=== PATIENT | male | born 1940 | race Caucasian/White ===

== ENCOUNTER → 2019-06-28 12:20 | Outpatient (CLI) | payer MEDICARE, OTHER, SELFPAY ==
--- NOTE | 2019-06-28 12:23 | DI.US.S_ITS ---
PROCEDURE: US ABDOMEN LIMITED INDICATIONS: RT GROIN PAIN. R/O INGUINAL HERNIA RIGHT TECHNIQUE: Real-time focused scanning was performed of the inguinal region, with image documentation. COMPARISON: None. FINDINGS: Right inguinal hernia is seen, possibly containing bowel loop which could be confirmed with CT. Abdominal wall defect measures 2.0 cm. IMPRESSION: Right inguinal hernia, which may contain a bowel loop. This could be confirmed with CT Dictated by: Doug Gonzalez M.D. on 06/28/2019 at 16:16 Approved by: Doug Gonzalez M.D. on 06/28/2019 at 16:19
== END ==
PROVIDERS: PCP Family Medicine; Referring Provider Nurse Practitioner; Visit Provider Nurse Practitioner
DX: R19.09 Other intra-abdominal and pelvic swelling, mass and lump (principal); K40.90 Unilateral inguinal hernia, without obstruction or gangrene, not specified as recurrent; R10.9 Unspecified abdominal pain
CPT/HCPCS: 76705

== ENCOUNTER → 2019-07-07 10:49 | Outpatient (CLI) | payer MEDICARE, OTHER, SELFPAY ==
--- NOTE | 2019-07-07 11:10 | DI.CT.S_ITS ---
PROCEDURE: CT ABDOMEN PELVIS W CON INDICATIONS: abnormal US possible hernia TECHNIQUE: After the administration of oral and intravenous contrast, 5 mm thick sections acquired from the diaphragms to the symphysis. 5 mm thick coronal and sagittal reformats were performed. For radiation dose reduction, the following was used: automated exposure control, adjustment of mA and/or kV according to patient size. COMPARISON: [facility], US, US ABDOMEN LIMITED, 06/28/2019, 12:31. FINDINGS: Image quality: Excellent. ABDOMEN: Lung bases: Lung bases are clear. Heart size is normal. Solid organs: Liver is normal in size and enhancement. There are scattered simple water density hepatic cysts. No solid mass lesion is found. Gallbladder appears normal anteriorly but more posteriorly a set of several subtle radiodensities are present including one of which contains a small internal calcification consistent with radiolucent gallstones. Biliary system is non-dilated. Pancreas enhances normally. Spleen is normal in size and enhancement. No adrenal nodules. Kidneys are normal in size and enhancement, without hydronephrosis. There is an exophytic water density right lower renal cortical cysts measuring up to 6.0 cm. Peritoneum and bowel: Stomach, small bowel, and colon loops are normal in caliber and wall thickness. No free fluid or air. Nodes and vessels: No retroperitoneal or mesenteric adenopathy. Aorta and inferior vena cava are normal in caliber. Miscellaneous: No ventral hernias. PELVIS: Genitourinary: Bladder wall thickness is normal. Miscellaneous: No inguinal hernias or adenopathy. The internal os of the right inguinal canal appears patulous, and at time of imaging contains inferior extension/herniation of a portion of the right bladder, showing no sign of incarceration or strangulation. Bones: No suspicious bony lesions. No vertebral body compression fractures. IMPRESSION: A patulous internal os of the right inguinal canal is associated with herniation of a portion of the right bladder margin into the inguinal canal, showing no sign of incarceration or strangulation. At time of scanning no bowel loops extend into this area but it is reasonable to assume that intermittent bowel herniation into that area could easily occur. Note is made of scattered hepatic water density cysts and an exophytic right lower kidney 6 cm exophytic cyst. One or more radiolucent gallstones appear present within the gallbladder lumen. One of these calculi contains a small internal calcification. No biliary obstruction or acute cholecystitis is associated. Dictated by: Sumit Lares M.D. on 07/07/2019 at 13:30 Approved by: Sumit Lares M.D. on 07/07/2019 at 13:37
[2019-07-07 12:03] LABS: BUN Creatinine Ratio 17.9 (6-22); Blood Urea Nitrogen 12 mg/dL (9-20); Calcium 9.6 mg/dL (8.4-10.2); Carbon Dioxide 29 mmol/L (22-32); Chloride 99 mmol/L (98-107); Estimated Glomerular Filt Rate > 60.0 mL/min (>60); Glucose 111 mg/dL (80-110); HEMOLYSIS < 15 (0-50); Potassium 4.6 mmol/L (3.4-5.1); Sodium 137 mmol/L (137-145)
== END ==
PROVIDERS: PCP Family Medicine; Referring Provider Family Medicine; Visit Provider Family Medicine
DX: R19.09 Other intra-abdominal and pelvic swelling, mass and lump (principal); R94.4 Abnormal results of kidney function studies; N32.89 Other specified disorders of bladder; N28.1 Cyst of kidney, acquired; K80.20 Calculus of gallbladder without cholecystitis without obstruction
CPT/HCPCS: 36415; 74177; 80048; Q9967

== ENCOUNTER → 2019-08-16 13:48 | Outpatient (CLI) | payer MEDICARE, OTHER, SELFPAY ==
[2019-08-16 14:53] LABS: Add Manual Diff / Slide Review NO; Basophils Absolute Auto 0 /uL (0-100); Basophils Percent Auto 0.5 % (0-2); Eosinophils Absolute Auto 0 /uL (0-450); Eosinophils Percent Auto 0.4 % (2-4); Hematocrit 46.4 % (41-53); Hemoglobin 15.7 g/dL (13.5-17.5); Lymphocytes Absolute Auto 1600 /uL (1100-4500); Lymphocytes Percent Auto 19.2 % (25-40); Mean Corpuscular HGB Conc 33.9 % (30-36); Mean Corpuscular Hemoglobin 31.5 PG (26-34); Mean Corpuscular Volume 92.9 fL (80-100); Monocytes Absolute Auto 600 /uL (0-900); Monocytes Percent Auto 7.9 % (3-14); Neutrophils Absolute Auto 5900 /uL (1500-7000); Platelet Count 226 X10^3/uL (150-400); Red Blood Cell Count 4.99 X10^6/uL (4.5-5.9); Red Cell Distribution Width 13.7 % (11.6-14.8); White Blood Cell Count 8.2 X10^3/uL (4.5-11.0)
[2019-08-16 15:10] LABS: Alanine Aminotransferase 27 IU/L (<50); Albumin 4.6 g/dL (3.5-5.0); Albumin Globulin Ratio 1.8 (1.0-2.8); Alkaline Phosphatase 58 U/L (38-126); Aspartate Aminotransferase 30 IU/L (17-59); BUN Creatinine Ratio 20.6 (6-22); Bilirubin Total 0.9 mg/dL (0.2-1.3); Blood Urea Nitrogen 13 mg/dL (9-20); Calcium 9.4 mg/dL (8.4-10.2); Carbon Dioxide 31 mmol/L (22-32); Chloride 99 mmol/L (98-107); Cholesterol 151 mg/dL (140-199); Estimated Glomerular Filt Rate > 60.0 mL/min (>60); Globulin 2.5 g/dL (1.7-4.1); Glucose 91 mg/dL (80-110); HDL Cholesterol 37 mg/dL (40-60); HEMOLYSIS < 15 (0-50); LDL Cholesterol Calculated 69 mg/dL (<100); Potassium 4.5 mmol/L (3.4-5.1); Sodium 136 mmol/L (137-145); Total Protein 7.1 g/dL (6.3-8.2); Triglycerides 226 mg/dL (35-150)
[2019-08-16 15:35] LABS: Prostate Specific Antigen Scrn 0.809 ng/mL (0.1-4.0)
== END ==
PROVIDERS: PCP Family Medicine; Referring Provider Family Medicine; Visit Provider Family Medicine
DX: E78.5 Hyperlipidemia, unspecified (principal); I10 Essential (primary) hypertension; N40.0 Benign prostatic hyperplasia without lower urinary tract symptoms; Z12.5 Encounter for screening for malignant neoplasm of prostate
CPT/HCPCS: 36415; 80053; 80061; 85025; G0103

== ENCOUNTER 2019-09-06 09:38 | Day surgery (SDC) | payer MEDICARE, OTHER, SELFPAY ==
[2019-08-31 14:44] VITALS: BMI 30.9
[2019-09-06] VITALS (8 sets, daily range): BP systolic 129–183; BP diastolic 74–98; PULSE 60–78; RESP 10–18; TEMP 36.2–36.7; O2SAT 94–99; BMI 30.9
[2019-09-06] MEDS: LACTATED RINGERS 1,000 ML 100 ML IV ×2 (09:49→13:22)
--- NOTE | 2019-09-06 11:23 | PM.PREOP ---
Pre-operative Note COVID-19 COVID-19 status: Negative Result date/Date tested (Pos, Neg/Pending): 09/03/19 Interval Note History & Physical reviewed/Exam performed by Physician: Yes Changes to H&P: No
[2019-09-06] MEDS: CEFAZOLIN 2 GM/100 ML FROZ.PIGGY IV (11:34)
--- NOTE | 2019-09-06 12:04 | SUR.OPER ---
Supine on padded OR bed, head on pillow, arms secured on padded arm boards at <90 degrees abduction, legs uncrossed, safety belt at thigh, tape over blanket over lower legs.
[2019-09-06] MEDS: BUPIVACAINE LIPOSOME 266 MG/20 ML VIAL INJ (12:14)
[2019-09-06] MEDS: BUPIVACAINE 0.25% W/ EPI 30 ML VIAL INJ ×3 (12:14→13:03)
--- NOTE | 2019-09-06 13:38 | P.OP_ITS ---
Operative Date/Time/Diagnoses Date of procedure: 09/06/19 Time of procedure: 13:38 Pre-op diagnosis: umbilical hernia, symptomatic right inguinal hernia Post-op diagnosis: other (2cm umbilical hernia with incarcerated fat; large right inguinal hernia with direct and indirect defects, with blown out inguinal canal floor) Procedure & Clinicians Procedure: Open repair of umbilical hernia with mesh, open repair of right inguinal hernia with mesh Same procedure as scheduled: Yes Indications: Symptomatic umbilical and inguinal hernias Surgeon: Aleisha Ely Click Yes if Unassisted: Yes Anesthesia Type: General Operative Notes Findings: Small umbilical hernia 2cm with incarcerated fat; large inguinal hernia with direct and indirect defects with blown out floor of the canal Specimen(s): none sent Prosthetic devices, grafts, tissues, transplants, or devices: Bard 4.3cm Ventralex mesh; Bard polypropelene macroporous flat mesh 6in x 8in Estimated Blood Loss (mL): 1 Blood products transfused: none Procedure in detail: The patient was brought into the OR, placed supine on the OR table, and appropriate preoperative antibiotics were given. Sequential compression devices were placed on both legs and turned on. General anesthesia was induced and the patient was intubated with an LMA by the anesthesiologist. The abdomen and groin were prepped and draped in sterile fashion for inguinal incision. A surgical time out was conducted. Local anesthetic was infiltrated into the skin and a 15 blade was used to make a 4cm curvilinear incision superior to the umbilicus. The umbilical hernia sac was dissected free from the umbilical skin. The hernia sac was opened. There was fat incarcerated in the hernia defect, which was freed from the hernia sac and reduced. I placed a 4.3cm Ventralex mesh within the defect and secured it in four corners with 3-0 PDS. The fascia was then closed with 3-0 PDS over the mesh. Local anesthetic was infiltrated into the fascia using 0.25% Marcaine with epi, as well as Exparel. The umbilical skin was secured to the fascia with 3-0 Vicryl. The subcutaneous fat and dermis was approximated with 3-0 Vicryl. The skin was closed with 4-0 Monocryl and sealed with Dermabond. Once dry, cotton balls were placed in the umbilicus and secured with Tegaderm for a compression dressing. Attention was then turned to the right groin. An oblique 10cm incision was made two finger breadths superior to the inguinal ligament. Dissection was carried down to through the subcutaneous fat and cathy's fascia down to the aponeurosis of the external oblique fascia. Local anesthetic was infiltrated beneath the aponeurosis. I used the 15 blade to incise the aponeurosis in the direction of the fibers. The aponeurosis was then opened with Metzenbaum scissors to the external ring. The spermatic cord was encircled with a [place] drain. Cremasteric fibers were dissected free from the spermatic cord and hernia sac. Once the hernia sac was freed from the spermatic cord, the inguinal canal floor was evaluated. There was a large direct and moderate indirect inguinal hernia with attenuated canal floor. I gave local anesthetic in the inguinal canal floor, pubic tubercle, and conjoint tendon. I then plicated the transversalis fascia with 2-0 PDS, including bites of inguinal ligament inferiorly and conjoint tendon superiorly. A BARD macroporous inguinal hernia mesh was then brought into the field and shaped to fit the groin. I secured it to the ligaments overlying the pubic tubercle with 2cm overlap, and then secured it to the inguinal ligament inferiorly and the conjoint tendon superiorly with 2-0 PDS suture. I made an opening in the mesh to accommodate the spermatic cord. Once the mesh was secure, I closed the external oblique aponeurosis with 3-0 Vicryl. I the cathy's fascia was closed with 3-0 Vicryl. The skin was closed with running 4-0 Monocryl subcuticular stitch. A total of 80mL of 0.25% Marcaine with epi and 20mL of Exparel were used for the entire case. The skin edges were sealed with Dermabond. The patient was awakened from anesthesia and extubated. He tolerated the procedure well. Needle, sponge and instrument counts were correct x 2. The patient was transferred to PACU in stable condition. Complications: none Post-operative Condition: stable Disposition: PACU
--- NOTE | 2019-09-06 15:29 | SUR.PHASEII ---
1505-Pt stable up and walking gait steady, drinking fluids without problems, daughter assisted pt to get dressed and now ready to go home. Iv dcd and site clear. Surgical sites clear. Pt dcd via [place] to private car at [facility], [place].
== END 2019-09-06 15:05 | disposition home or self-care (01) ==
PROVIDERS: PCP Family Medicine; Referring Provider Surgery; Visit Provider Surgery
PROC: (CPT 49505; principal; 2019-09-06 11:15)
DX: K40.90 Unilateral inguinal hernia, without obstruction or gangrene, not specified as recurrent (principal); K42.0 Umbilical hernia with obstruction, without gangrene; I10 Essential (primary) hypertension; E78.5 Hyperlipidemia, unspecified; N40.0 Benign prostatic hyperplasia without lower urinary tract symptoms
CPT/HCPCS: 49505; 49585; C1781; C9290; J0690; J1100; J1885; J2405; J2704; J3010

== ENCOUNTER → 2020-11-05 14:27 | Outpatient (CLI) | payer MEDICARE, OTHER, SELFPAY ==
[2020-11-05 15:42] LABS: Alanine Aminotransferase 24 IU/L (<50); Albumin 4.4 g/dL (3.5-5.0); Albumin Globulin Ratio 1.8 (1.0-2.8); Alkaline Phosphatase 59 U/L (38-126); Aspartate Aminotransferase 27 IU/L (17-59); BUN Creatinine Ratio 22.6 (6-22); Blood Urea Nitrogen 14 mg/dL (9-20); Calcium 9.2 mg/dL (8.4-10.2); Carbon Dioxide 24 mmol/L (22-32); Chloride 104 mmol/L (98-107); Cholesterol 139 mg/dL (140-199); Estimated Glomerular Filt Rate > 60.0 mL/min (>60); Globulin 2.5 g/dL (1.7-4.1); Glucose 92 mg/dL (80-110); HDL Cholesterol 42 mg/dL (40-60); HEMOLYSIS < 15 (0-50); LDL Cholesterol Calculated 68 mg/dL (<100); Sodium 137 mmol/L (137-145); Total Protein 6.9 g/dL (6.3-8.2); Triglycerides 145 mg/dL (35-150)
[2020-11-05 15:43] LABS: Hematocrit 45.6 % (41-53); Hemoglobin 15.3 g/dL (13.5-17.5); Mean Corpuscular HGB Conc 33.5 % (30-36); Mean Corpuscular Hemoglobin 30.7 PG (26-34); Mean Corpuscular Volume 91.8 fL (80-100); Platelet Count 204 X10^3/uL (150-400); Red Blood Cell Count 4.97 X10^6/uL (4.5-5.9); Red Cell Distribution Width 13.7 % (11.6-14.8); White Blood Cell Count 6.5 X10^3/uL (4.5-11.0)
[2020-11-05 15:57] LABS: Free T3, Triiodothyronine Free 4.22 pg/mL (2.77-5.27); Free T4, Direct Thyroxine 1.05 ng/dL (0.78-2.19)
[2020-11-05 16:04] LABS: Creatinine Urine Random 118.8 mg/dL
[2020-11-05 16:09] LABS: Microalbumi Creatinin Ratio Ur 6.7 ug/mg CR (<30); Microalbumin Urine Random 0.8 mg/dL (0-1.6)
[2020-11-05 16:11] LABS: Thyroid Stimulating Hormone 2.75 uIU/mL (0.47-4.68)
[2020-11-05 16:12] LABS: Prostate Specific Antigen 0.459 ng/mL (0.10-4.00)
[2020-11-05 16:20] LABS: Neutrophils Absolute Manual 3965 /uL (3000-5900); RBC Morphology Normal Morphology; Total Cells Counted 100
== END ==
PROVIDERS: PCP Nurse Practitioner; Referring Provider Nurse Practitioner; Visit Provider Nurse Practitioner
DX: E78.5 Hyperlipidemia, unspecified (principal); I10 Essential (primary) hypertension; N40.0 Benign prostatic hyperplasia without lower urinary tract symptoms; Z79.899 Other long term (current) drug therapy; Z87.440 Personal history of urinary (tract) infections; Z12.5 Encounter for screening for malignant neoplasm of prostate
CPT/HCPCS: 36415; 80053; 80061; 82043; 82570; 84153; 84439; 84443; 84481; 85025

== ENCOUNTER → 2021-10-06 12:45 | Outpatient (CLI) | payer MEDICARE, OTHER, SELFPAY ==
[2021-10-06 14:53] LABS: Free T3, Triiodothyronine Free 3.75 pg/mL (2.77-5.27); Free T4, Direct Thyroxine 1.24 ng/dL (0.78-2.19)
[2021-10-06 16:00] LABS: Alanine Aminotransferase 21 IU/L (<50); Albumin 4.3 g/dL (3.5-5.0); Albumin Globulin Ratio 1.7 (1.0-2.8); Alkaline Phosphatase 63 U/L (38-126); Aspartate Aminotransferase 35 IU/L (17-59); BUN Creatinine Ratio 21.8 (6-22); Bilirubin Total 2.1 mg/dL (0.2-1.3); Blood Urea Nitrogen 12 mg/dL (9-20); Carbon Dioxide 27 mmol/L (22-32); Chloride 98 mmol/L (98-107); Cholesterol 118 mg/dL (140-199); Estimated Glomerular Filt Rate > 60 mL/min (>60); Globulin 2.5 g/dL (1.7-4.1); Glucose 83 mg/dL (80-110); HDL Cholesterol 47 mg/dL (40-60); HEMOLYSIS 36 (0-50); LDL Cholesterol Calculated 61 mg/dL (<100); Potassium 4.5 mmol/L (3.4-5.1); Sodium 133 mmol/L (137-145); Total Protein 6.8 g/dL (6.3-8.2); Triglycerides 48 mg/dL (35-150)
[2021-10-06 17:22] LABS: Creatinine Urine Random 94.1 mg/dL
[2021-10-06 17:26] LABS: Microalbumi Creatinin Ratio Ur 6.3 ug/mg CR (<30); Microalbumin Urine Random 0.6 mg/dL (0-1.6)
== END ==
PROVIDERS: PCP Family Medicine; Referring Provider Nurse Practitioner; Visit Provider Nurse Practitioner
DX: I10 Essential (primary) hypertension (principal); E78.2 Mixed hyperlipidemia; Z79.899 Other long term (current) drug therapy
CPT/HCPCS: 36415; 80053; 80061; 82043; 82570; 84439; 84443; 84481; 93005; 93010

== ENCOUNTER → 2021-10-28 14:58 | Outpatient (CLI) | payer MEDICARE, OTHER, SELFPAY ==
--- NOTE | 2021-10-28 15:02 | DI.ECHO.S_ITS ---
[facility]---------+ [facility] +---------+ : : [address] : : : : [id number] : : : : Phone: [phone]+ Echocardiogram Report + + :Name: SKIP MARSH Study Date: 10/28/2021 Height: 69 in : :[facility] ReadingLocation: Weight: 170 lb : : Gender: Male BSA: 1.9 m2 : :: 1940 Age: 81 yrs BP: 130/82 mmHg: :Reason For Study: HYPERTENSION : :Ordering Physician: TIEN, : :CHACORTA Performed By: Ally Mast : :Referring: CHACORTA CHAUHAN : + + Interpretation Summary The left ventricle is normal in size and wall thickness. The ejection fraction is estimated to be 60-65%. The right ventricle is normal in size and function. No significant valvular pathology seen. The ascending aorta is moderately enlarged. 4.5 cm in diameter. Procedure: A two-dimensional transthoracic echocardiogram with color flow and Doppler was performed. The study quality was technically adequate. There is no prior echocardiogram noted for this patient. The patient was in sinus rhythm with heart rates between 73-80 bpm during the exam. Left Ventricle: The left ventricle is normal in size and wall thickness. There is no thrombus. The ejection fraction is estimated to be 60-65%. There are no focal wall motion abnormalities. Diastolic parameters suggest a relaxation abnormality of the left ventricle, consistent with probable normal filling pressures. Right Ventricle: The right ventricle is normal in size and function. Atria: The left atrial size is normal. Right atrial size is normal. There is no Doppler evidence for an interatrial shunt. Mitral Valve: The mitral valve leaflets appear borderline thickened, but open well. There is mild mitral annular calcification. There is mild mitral regurgitation. Aortic Valve: The aortic valve is trileaflet. The aortic valve opens well. There is no aortic valve stenosis. There is trace aortic regurgitation. Tricuspid Valve: The tricuspid valve is normal in structure and function. There is mild tricuspid regurgitation. The right ventricular systolic pressure is estimated to be at least 30 mmHg based on an estimated right atrial pressure of 3 mm Hg. Pulmonic Valve: The pulmonic valve is not well visualized. There is mild pulmonic regurgitation. Great Vessels: The aortic root is normal size. The ascending aorta is moderately enlarged. The IVC is of normal diameter and collapses greater than 50% with a sniff. This suggests a low right atrial pressure of 3 mm Hg. Pericardium/ Pleura There is no pericardial effusion. There is no pleural effusion. MMode/2D Measurements & Calculations LVIDd: 4.8 cm LVOT diam: 2.3 cm LVIDs: 3.2 cm Ao root diam: 3.6 cm FS: 33.0 % asc Aorta Diam: 4.5 cm IVSd: 1.00 cm LVPWd: 0.99 cm LV auguste. diameter/BSA (cm/m^2): 2.5 LV sys. diameter/BSA (cm/m^2): 1.7 LA A2 area: 19.7 cm2 RA long axis: 5.4 cm LA A4 area: 15.9 cm2 RA area: 15.1 cm2 LA length (vol): 5.0 cm RA vol: 36.2 ml LA vol: 53.5 ml RA : 18.8 ml/m2 LA vol index: 27.8 ml/m2 IVC diam: 1.4 cm RVD1 (basal): 3.4 cm TAPSE: 1.8 cm Doppler Measurements & Calculations Ao V2 max: 128.0 cm/sec LVOT Max Shawn: 108.5 cm/sec Ao V2 mean: 88.0 cm/sec LV V1 max P.7 mmHg Ao max P.6 mmHg LV V1 VTI: 23.2 cm Ao mean P.4 mmHg LUDIN(I,D): 4.2 cm2 Ao V2 VTI: 23.1 cm LUDIN(V,D): 3.6 cm2 sev ratio: 1.0 LUDIN indexed to BSA (cm^2/m^2): 2.2 MV E max shawn: 68.0 cm/sec TR max shawn: 258.9 cm/sec MV A max shawn: 101.2 cm/sec TR max P.8 mmHg MV E/A: 0.67 PA V2 max: 115.1 cm/sec Med Peak E' Shawn: 5.1 cm/sec PA V2 mean: 74.0 cm/sec E/E' med: 13.3 PA mean P.6 mmHg Lat Peak E' Shawn: 7.3 cm/sec PA pr(Accel): 20.8 mmHg E/E' lat: 9.3 E/e' average: 11.3 MV dec time: 0.24 sec SV(LVOT): 98.1 ml Reading Physician:05:42 PM
== END ==
PROVIDERS: PCP Family Medicine; Referring Provider Nurse Practitioner; Visit Provider Nurse Practitioner
DX: I10 Essential (primary) hypertension (principal)
CPT/HCPCS: 93306

== ENCOUNTER → 2021-11-05 11:42 | Outpatient (CLI) | payer MEDICARE, OTHER, SELFPAY ==
[2021-11-05 13:20] LABS: COVID19 -Nasal RAPID Negative (Negative)
== END ==
PROVIDERS: PCP Family Medicine; Visit Provider Surgery
DX: Z01.812 Encounter for preprocedural laboratory examination (principal); Z20.822 Contact with and (suspected) exposure to COVID-19
CPT/HCPCS: 87635; C9803

== ENCOUNTER 2021-11-06 10:08 | Day surgery (SDC) | payer MEDICARE, OTHER, SELFPAY ==
--- NOTE | 2021-11-06 | PATH_ITS ---
[facility] Accession Number: [id number] . 01 Material submitted: . PART A: colon - ASCENDING COLON POLYP PART B: colon - HEPATIC FLEXURE POLYP . 01 Diagnosis: A. Ascending Colon, Polyp, Biopsy: Tubular adenoma. . B. Hepatic Flexure, Polyp, Biopsy: Tubular adenoma. . [facility] 11/11/2021 1819 Local . 01 Electronically signed: . Rosamaria Andres MD, Pathologist NPI- [id number] . 01 Gross description: . A. The specimen is received in formalin, labeled with the patient's name and ascending colon polyp, and consists of a single irregular naranjo, soft tissue fragment measuring 0.4 cm in greatest dimension. Submitted entirely in cassette A1. B. The specimen is received in formalin, labeled with the patient's name and hepatic flexure polyp, and consists of a single irregular naranjo, soft tissue fragment measuring 0.5 cm in greatest dimension. Submitted entirely in cassette B1. ([id number]) /[facility] 11/08/2021 1415 Local . 01 Pathologist provided ICD-10: D12.2, D12.3 . 01 CPT . 308682, [id number] Specimen Comment: A courtesy copy of this report has been sent to [phone] Performed at: 01 [facility] [address] [place] [address], [place], [place] [id number] MD Shine Hunt MD Phone: [phone]
[2021-11-06 10:36] VITALS: BP 143/80; PULSE 86; RESP 20; TEMP 36.7; O2SAT 98; BMI 25.4
[2021-11-06] MEDS: LACTATED RINGERS 1,000 ML 200 ML IV (10:36)
--- NOTE | 2021-11-06 12:37 | PM.PREOP ---
Pre-operative Note COVID-19 COVID-19 status: Negative Result date/Date tested (Pos, Neg/Pending): 11/05/21 Interval Note History & Physical reviewed/Exam performed by Physician: Yes Changes to H&P: No ASA Class (for procedural sedation): II
[2021-11-06] MEDS: MIDAZOLAM 5 MG/5 ML VIAL IV (12:48)
[2021-11-06] MEDS: fentaNYL 100 MCG/2 ML INJ 125 MCG IV (12:48)
--- NOTE | 2021-11-06 13:17 | PM.OP.COLON ---
Operative Date/Time/Diagnoses Date of procedure: 11/06/21 Time of procedure: 13:17 Pre-op diagnosis: History of polyps Post-op diagnosis: same Procedure & Clinicians Study performed: Colonoscopy Same procedure as scheduled: Yes Surgeon: Wolf Lorenzo Procedure Notes Procedure in detail: Surgeon: Wolf Lorenzo MD Procedure: The patient was brought to the endoscopy suite, placed in left lateral decubitus position. The patient was connected to monitoring devices. A time-out was performed. Sedation was administered. Once the patient was adequately sedated, a digital rectal exam was performed and was normal. The scope was then inserted and advanced to the cecum where the appendiceal orifice was identified and photographed. The scope was then slowly withdrawn over greater than 6 minutes. The mucosa was thoroughly inspected. There was a 5 mm polyp in the ascending colon removed with a cold snare. There was a 5 mm polyp near the hepatic flexure removed with a cold snare. The scope was retroflexed in the rectum. There were some internal hemorrhoids but no other abnormalities were seen. The scope was straightened and removed. The patient was awakened and brought to recovery. Versed: 5 mg Fentanyl: 125 mcg EBL: 4 mL Findings: Ascending colon polyp and hepatic flexure polyp Scope withdrawal time: 12 Sedation minutes: 26 Post-procedure Disposition: PACU
[2021-11-06 13:21] VITALS: BP 108/71; PULSE 62; RESP 16; TEMP 36.2; O2SAT 95
[2021-11-06 13:26] VITALS: BP 117/71; PULSE 64; RESP 16; TEMP 36.9; O2SAT 95
[2021-11-06 13:36] VITALS: BP 107/71; PULSE 64; RESP 16; TEMP 36.2; O2SAT 98
[2021-11-06 13:44] VITALS: BP 124/81; PULSE 64; RESP 14; TEMP 36; O2SAT 94
--- NOTE | 2021-11-06 14:46 | SUR.PHASEII ---
Patient ambulated to wheelchair with steady gait. tolerated Fluids. Provided written and verbal discharge instructions Patient and daughter Ana stated understanding. Discharged by wheelchair to private vehicle in stable condition.
== END 2021-11-06 14:09 | disposition home or self-care (01) ==
PROVIDERS: PCP Family Medicine; Referring Provider Surgery; Visit Provider Surgery
PROC: 0DJD8ZZ Inspection of Lower Intestinal Tract, Via Natural or Artificial Opening Endoscopic (ICD-10-PCS; CPT 45378; principal; 2021-11-06 14:00)
DX: Z12.11 Encounter for screening for malignant neoplasm of colon (principal); Z86.010 Personal history of colon polyps; K64.8 Other hemorrhoids; D12.2 Benign neoplasm of ascending colon; D12.3 Benign neoplasm of transverse colon
CPT/HCPCS: 45385; 99152; 99153; J2250; J3010

== ENCOUNTER → 2021-12-09 14:46 | Outpatient (CLI) | payer MEDICARE, OTHER, SELFPAY ==
[2021-12-09 16:51] LABS: Alanine Aminotransferase 20 IU/L (<50); Albumin 4.4 g/dL (3.5-5.0); Albumin Globulin Ratio 1.6 (1.0-2.8); Alkaline Phosphatase 61 U/L (38-126); Aspartate Aminotransferase 29 IU/L (17-59); BUN Creatinine Ratio 23.3 (6-22); Bilirubin Total 1.4 mg/dL (0.2-1.3); Blood Urea Nitrogen 14 mg/dL (9-20); Calcium 9.1 mg/dL (8.4-10.2); Carbon Dioxide 27 mmol/L (22-32); Chloride 101 mmol/L (98-107); Cholesterol 133 mg/dL (140-199); Estimated Glomerular Filt Rate > 60 mL/min (>60); Globulin 2.7 g/dL (1.7-4.1); Glucose 84 mg/dL (80-110); HDL Cholesterol 46 mg/dL (40-60); HEMOLYSIS < 15 (0-50); LDL Cholesterol Calculated 68 mg/dL (<100); Potassium 3.9 mmol/L (3.4-5.1); Sodium 137 mmol/L (137-145); Total Protein 7.1 g/dL (6.3-8.2); Triglycerides 93 mg/dL (35-150)
[2021-12-09 17:03] LABS: LDL Cholesterol Direct 65 mg/dL (<100)
== END ==
PROVIDERS: PCP Family Medicine; Referring Provider Nurse Practitioner; Visit Provider Nurse Practitioner
DX: E78.2 Mixed hyperlipidemia (principal); E87.1 Hypo-osmolality and hyponatremia; R17 Unspecified jaundice
CPT/HCPCS: 36415; 80053; 80061; 83721

== ENCOUNTER → 2022-05-26 08:01 | Outpatient (CLI) | payer MEDICARE, OTHER, SELFPAY ==
[2022-05-26 09:46] LABS: Alanine Aminotransferase 21 IU/L (<50); Albumin 4.2 g/dL (3.5-5.0); Albumin Globulin Ratio 1.4 (1.0-2.8); Alkaline Phosphatase 60 U/L (38-126); Aspartate Aminotransferase 25 IU/L (17-59); BUN Creatinine Ratio 28.8 (6-22); Bilirubin Total 1.4 mg/dL (0.2-1.3); Blood Urea Nitrogen 19 mg/dL (9-20); Calcium 9.2 mg/dL (8.4-10.2); Carbon Dioxide 27 mmol/L (22-32); Chloride 103 mmol/L (98-107); Estimated Glomerular Filt Rate > 60 mL/min (>60); Globulin 2.9 g/dL (1.7-4.1); Glucose 99 mg/dL (80-110); HEMOLYSIS < 15 (0-50); Potassium 4.1 mmol/L (3.4-5.1); Sodium 138 mmol/L (137-145); Total Protein 7.1 g/dL (6.3-8.2)
[2022-05-26 10:31] LABS: Hep C Virus Ab w/Reflex Quant NEGATIVE s/c (NEGATIVE)
== END ==
PROVIDERS: PCP Nurse Practitioner; Referring Provider Nurse Practitioner; Visit Provider Nurse Practitioner
DX: I10 Essential (primary) hypertension (principal); E87.1 Hypo-osmolality and hyponatremia; R17 Unspecified jaundice; Z11.59 Encounter for screening for other viral diseases
CPT/HCPCS: 36415; 80053; 86803; 93005

== ENCOUNTER 2023-05-05 13:45 | Outpatient (RCR) | payer MEDICARE, OTHER, SELFPAY ==
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
--- NOTE | 2023-03-15 14:37 | PT.OPPOC ---
Physical, Occupational & Speech Therapy At [facility] Current Diagnoses Displaced bimalleolar fracture of right lower leg, initial encounter for closed fracture (03/15/23) Encounter for other orthopedic aftercare (03/15/23) Visit Care Team Role Provider Type TAHIRA Malone Family Provider Advanced Artificial Pearl Maker Primary Care Provider Specialty: Family Practice Address: [address] [place] [address], [id number] Email: [email or web address] Leonel Aponte DO Attending Provider Non-Staff Referring Provider Specialty: Orthopedics Address: [address] [place] [address], [id number] Email: Plan Of Care PT-OP-T Assessment and Plan Start: 03/08/23 13:22 Freq: Status: Active Protocol: Document 03/15/23 10:31 MB (Rec: 03/15/23 10:54 MB [id number]) Physical Therapy Assessment Rehab Potential Rehabilitation Potential Good Evaluation Complexity Number of Personal Factors/Comorbidities 1-2 Number of Body Systems Impaired 1-2 Clinical Presentation at Evaluation Evolving Impairments Impairments Balance,Functional Activities, Functional Mobility,Gait, Integument,Pain,Posture,ROM, Soft Tissue Mobility,Strength Goals 5 Impairment Lack of HEP Social Studies Teacher Goal (LTG) Pt will perform progressive HEP with I including posture, alignment, balance, flexibility and strengthening exercises to improve function and gait. LTG Duration 8 weeks 4 Impairment LEF score 43/80 Social Studies Teacher Goal (LTG) Pt will present with LEF score to at least 60/80 to reflect improved LE function and to decrease fall risk. LTG Duration 8 weeks 3 Impairment Evidence for imbalance Chcf Goal (LTG) Pt will perform WNLs on a standardized balance test to decrease fall risk. LTG Duration 8 weeks 2 Impairment 14 reps STS in 30 sec Social Studies Teacher Goal (LTG) Pt will perform at least 17 reps STS in 30 sec to improve functional strength and transfers. LTG Duration 8 weeks 1 Impairment 915 feet gait in 6 minutes Chcf Goal (LTG) Pt will gait train at least 1150 feet in 6 minutes to improve community ambulation and I. LTG Duration 8 weeks Assessment Summary Assessment Pt is hyperverbal but does not answer direct questions well. PT con't to try to keep pt on task which is challenging during history taking. Pt presents with antalgic gait, postural changes, decreased right ankle and foot range and strength and decreased balance after B malleolar fracture [place]. He will benefit from PT to improve gait, posture, balance and functional strength. Pt reports he is very active at baseline and would like to return to being normal. Physical Therapy Plan Frequency and Duration Frequency of Treatment 1-2x/wk Duration of treatment (weeks) 8 Plan of Care Start Date 03/15/23 Plan of Care End Date 05/17/23 Therapeutic Interventions Therapeutic Interventions Balance Training,Canalithic Repositioning,Coordination Training,Gait Training,Home Exercise Program,Joint Mobilizations,Manual Therapy, Neuromuscular Re-education, Patient/Caregiver Education, Self-Care/Home Management,Soft Tissue Mobilization,Taping, Therapeutic Activities, Therapeutic Exercises Modalities Cold Pack/Ice Massage,Electric Stimulation,Hot Packs, Ultrasound Next Visit Focus/Plan Next Note Type Treatment Note Next Visit Plan Functional Gait Assessment Initiate exercises: consider Biodex for exercise that includes gentle foot movement on movable foot plates Consider flexibility exercises with martial art band in supine: hamstring stretch with AP, add and abd positions added, bridging, other ankle exercises with theraband Balance exercises on floor and blue foam Plan of Care Dates Plan of Care Start Date 03/15/23 Plan of Care End Date 05/17/23 Electronically Signed by: Jenise Mcmahan PT 03/15/23 6129 If you are in agreement with this Plan of Care, please return a signed and dated copy. I have reviewed this Plan of Care and certify that the skilled therapy services above are required to meet the patient?s needs. Physician Signature Date Printed Name and Credentials Clinical Instructor Signature Printed Name and Credentials
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
== END 2023-05-17 10:43 | disposition home or self-care (01) ==
LOC: PHYS 13:45
PROVIDERS: Family Provider Nurse Practitioner; PCP Nurse Practitioner; Referring Provider Orthopaedic Surgery; Visit Provider Orthopaedic Surgery
DX: Z47.89 Encounter for other orthopedic aftercare (principal); S82.841A Displaced bimalleolar fracture of right lower leg, initial encounter for closed fracture
CPT/HCPCS: 97110; 97112; 97116; 97161; 97535

== ENCOUNTER → 2023-06-14 13:38 | Outpatient (CLI) | payer MEDICARE, OTHER, SELFPAY ==
[2023-06-14 14:28] LABS: Alanine Aminotransferase 31 IU/L (<50); Albumin 4.7 g/dL (3.5-5.0); Albumin Globulin Ratio 1.7 (1.0-2.8); Alkaline Phosphatase 63 U/L (38-126); Aspartate Aminotransferase 32 IU/L (17-59); BUN Creatinine Ratio 22.2 (6-22); Bilirubin Total 1.1 mg/dL (0.2-1.3); Blood Urea Nitrogen 12 mg/dL (9-20); Calcium 9.3 mg/dL (8.4-10.2); Carbon Dioxide 26 mmol/L (22-32); Chloride 107 mmol/L (98-107); Cholesterol 169 mg/dL (140-199); Estimated Glomerular Filt Rate > 60 mL/min (>60); Globulin 2.7 g/dL (1.7-4.1); Glucose 93 mg/dL (80-110); HDL Cholesterol 55 mg/dL (40-60); HEMOLYSIS < 15 (0-50); LDL Cholesterol Calculated 85 mg/dL (<100); Potassium 3.8 mmol/L (3.4-5.1); Sodium 139 mmol/L (137-145); Total Protein 7.4 g/dL (6.3-8.2); Triglycerides 147 mg/dL (35-150)
[2023-06-14 14:43] LABS: Free T3, Triiodothyronine Free 4.11 pg/mL (2.77-5.27); Free T4, Direct Thyroxine 1.04 ng/dL (0.78-2.19)
[2023-06-14 14:57] LABS: Thyroid Stimulating Hormone 2.06 uIU/mL (0.47-4.68)
[2023-06-14 18:35] LABS: Creatinine Urine Random 49.6 mg/dL
[2023-06-14 18:43] LABS: Microalbumin Urine Random < 0.6 mg/dL (0-1.6)
== END ==
LOC: LAB 13:39
PROVIDERS: Family Provider Nurse Practitioner; PCP Nurse Practitioner; Referring Provider Nurse Practitioner; Visit Provider Nurse Practitioner
DX: N40.0 Benign prostatic hyperplasia without lower urinary tract symptoms (principal); E78.5 Hyperlipidemia, unspecified; I10 Essential (primary) hypertension; R17 Unspecified jaundice; E78.1 Pure hyperglyceridemia
CPT/HCPCS: 36415; 80053; 80061; 82043; 82570; 84439; 84443; 84481

== ENCOUNTER → 2024-06-08 11:01 | Outpatient (CLI) | payer MEDICARE, OTHER, SELFPAY ==
[2024-06-08 12:29] LABS: Alanine Aminotransferase 31 IU/L (<50); Albumin 4.9 g/dL (3.5-5.0); Albumin Globulin Ratio 1.9 (1.0-2.8); Alkaline Phosphatase 61 U/L (38-126); Aspartate Aminotransferase 34 IU/L (17-59); BUN Creatinine Ratio 14.9 (6-22); Bilirubin Total 1.5 mg/dL (0.2-1.3); Blood Urea Nitrogen 11 mg/dL (9-20); Calcium 9.5 mg/dL (8.4-10.2); Carbon Dioxide 27 mmol/L (22-32); Chloride 101 mmol/L (98-107); Cholesterol 174 mg/dL (140-199); Estimated Glomerular Filt Rate > 60 mL/min (>60); Globulin 2.6 g/dL (1.7-4.1); Glucose 101 mg/dL (80-110); HDL Cholesterol 49 mg/dL (40-60); HEMOLYSIS < 15 (0-50); LDL Cholesterol Calculated 104 mg/dL (<100); Potassium 4.9 mmol/L (3.4-5.1); Sodium 137 mmol/L (137-145); Total Protein 7.5 g/dL (6.3-8.2); Triglycerides 107 mg/dL (35-150)
[2024-06-08 12:42] LABS: Free T3, Triiodothyronine Free 4.02 pg/mL (2.77-5.27)
[2024-06-08 12:55] LABS: TSH w/ Reflex to FT4 1.57 uIU/mL (0.47-4.68)
[2024-06-08 14:25] LABS: Creatinine Urine Random 110.01 mg/dL
[2024-06-08 14:29] LABS: Microalbumin Urine Random 1.8 mg/dL (0-1.6)
== END ==
PROVIDERS: Family Provider Nurse Practitioner; PCP Family Medicine; Referring Provider Family Medicine; Visit Provider Family Medicine
DX: Z00.00 Encounter for general adult medical examination without abnormal findings (principal); E78.2 Mixed hyperlipidemia; E03.9 Hypothyroidism, unspecified; R17 Unspecified jaundice; E87.1 Hypo-osmolality and hyponatremia; I10 Essential (primary) hypertension
CPT/HCPCS: 36415; 80053; 80061; 82043; 82570; 84443; 84481

== ENCOUNTER 2024-08-18 08:49 | Day surgery (SDC) | payer MEDICARE, OTHER, SELFPAY ==
[2024-08-18] VITALS (7 sets, daily range): BP systolic 92–158; BP diastolic 56–94; PULSE 64–85; RESP 12–24; TEMP 36.1–36.2; O2SAT 93–98
[2024-08-18] MEDS: LACTATED RINGERS 1,000 ML 42 ML IV (10:12)
--- NOTE | 2024-08-18 10:17 | PM.PREOP ---
Pre-operative Note COVID-19 COVID-19 status: Not tested Interval Note History & Physical reviewed/Exam performed by Physician: Yes Changes to H&P: No ASA Class (for procedural sedation): II
--- NOTE | 2024-08-18 10:49 | PM.OP.COLON ---
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 The patient was connected to monitoring devices. A time-out was performed. Sedation was administered. Once the patient was adequately sedated, a digital rectal exam was performed and was normal except for an enlarged prostate. The scope was then inserted and advanced to the cecum where the appendiceal orifice was identified and photographed. The scope was then slowly withdrawn over greater than 6 minutes. The mucosa was thoroughly inspected. No polyps or other abnormalities were found. The scope was retroflexed in the rectum. Internal hemorrhoids were noted. The scope was straightened and removed. The patient was awakened and brought to recovery. Scope withdrawal time: 9 minutes Sedation time: 15 minutes EBL: 0 Findings: Internal hemorrhoids Post-procedure Disposition: PACU
== END 2024-08-18 11:23 | disposition home or self-care (01) ==
PROVIDERS: Family Provider Nurse Practitioner; PCP Family Medicine; Referring Provider Surgery; Visit Provider Surgery
PROC: 0DJD8ZZ Inspection of Lower Intestinal Tract, Via Natural or Artificial Opening Endoscopic (ICD-10-PCS; CPT 45378; principal; 2024-08-18 10:45)
DX: Z12.11 Encounter for screening for malignant neoplasm of colon (principal); Z86.0101 Personal history of adenomatous and serrated colon polyps; K64.8 Other hemorrhoids
CPT/HCPCS: G0105; J2704